=== PATIENT | female | born 1995 | race African-American/Black ===

== ENCOUNTER 2016-12-11 14:37 | Emergency (ER) | payer OTHER ==
[~2016-12-11] VITALS: Ht 162.6 cm; Wt 67.1 kg
--- NOTE | 2016-12-11 14:40 | NUR ---
ROOM BROUGHT PT TO ROOM, TRIAGE DONE
[2016-12-11] MEDS ORDERED: LIDOCAINE 1% VIAL ONE (15:08)
--- NOTE | 2016-12-11 15:11 | ER.PDOC ---
General Chief Complaint: Skin Rash/Abscess Stated Complaint: SKIN ABSCESS Time seen by MD: 15:10 Source: patient Exam Limitations: no limitations History of Present Illness Initial Comments Abscess right labia for 4 days Allergies: Coded Allergies: No Known Allergies (Unverified , 12/11/16) Past Medical History LMP (females 10-50): 1 month Social History Smoking: greater than 1 pack/day Alcohol Use: none Drug Use: none Constitutional: no symptoms reported Respiratory: no symptoms reported Cardiovascular: no symptoms reported Gastrointestinal: no symptoms reported Skin: see HPI All Other Systems: Reviewed and Negative Physical Exam General Appearance: alert, no distress Skin: abscess, pointing Location: other (right labia majora) With: tenderness, swelling, inflammation EENT: eyes nml inspection, lips/gums nml, pharynx nml Neck: trachea midline, no swelling Respiratory: no resp. distress, breath sounds nml CVS: reg. rate & rhythm, heart sounds nml Abdomen: non-tender, no organomegaly NEURO/PSYCH: oriented x 3, CN's nml as tested, motor nml, sensation nml, mood/ affect nml Incision and Drainage Incision and Drainage : Site: Right labia Blade Size: 11 I & D Procedure: betadine prep, gauze wick placed, irrigated cavity w/saline , culture/gram stain Departure Time of Disposition: 15:30 Disposition: 01 HOME, SELF-CARE Impression: Primary Impression: Abscess Condition: Stable Referrals: SUGAR MAXWELL PA-C (PCP) PRIMARY CARE PROVIDER Additional Instructions: F/U with your PCP or return to ED tomorrow for dressing change. EUSEBIO SANTA MD Dec 11, 2016 15:11
[2016-12-11] MEDS ORDERED: NORCO 5 MG PO ONE (15:28)
[2016-12-11] MEDS ORDERED: NORCO 5 MG PO STA (15:29)
[2016-12-11 15:43] VITALS: BP 130/71
== END 2016-12-11 15:40 | disposition home or self-care (01) ==
LOC: ER 14:37
DX: N76.4 Abscess of vulva (principal); F17.210 Nicotine dependence, cigarettes, uncomplicated
CPT/HCPCS: 56405; 87070; 87077; 87186; 99284; J2001

== ENCOUNTER 2018-10-08 12:53 | Emergency (ER) | payer MEDICAID ==
[~2018-10-08] VITALS: Ht 157.5 cm; Wt 68.0 kg
[2018-10-08 13:15] VITALS: BP 135/40
[2018-10-08] MEDS ORDERED: WATER ONE (13:24)
[2018-10-08] MEDS ORDERED: LIDOCAINE 1% VIAL ONE (13:25)
--- NOTE | 2018-10-08 14:06 | ER.PDOC ---
General Chief Complaint: Skin Rash/Abscess Stated Complaint: ABCESS Time seen by MD: 13:58 Source: patient Exam Limitations: no limitations History of Present Illness Initial Comments Pt c/o bump on groin that has been draining for 1 day, started swelling about 3 days ago. Has gotten smaller and is hurting less since it began draining. Is taking Clindamycin that she had left over from another abscess a year ago. Severity: moderate Context: Has had similar symptoms, had abscess with i&D Quality: painful Allergies: Coded Allergies: No Known Allergies (Unverified , 12/11/16) Past Medical History Medical History: other Surgical History: other Social History Smoking: non-smoker Alcohol Use: none Drug Use: none Constitutional: no symptoms reported EENTM: no symptoms reported Respiratory: no symptoms reported Cardiovascular: no symptoms reported Gastrointestinal: no symptoms reported Musculoskeletal: no symptoms reported Skin: see HPI Endocrine: no symptoms reported All Other Systems: Reviewed and Negative Physical Exam General Appearance: alert Skin: abscess (R groin lateral to labia, draining, approx 1.5cm diameter of induration, minimal erythema) Location: other (vagina, labia) With: warmth, tenderness, swelling, induration 1 - small, draining abscess Extremities: non-tender EENT: eyes nml inspection Neck: trachea midline Respiratory: no resp. distress CVS: reg. rate & rhythm NEURO/PSYCH: oriented x 3 Results/Orders Results/Orders Orders - KATHRINE MICHAEL DO Water For Irrigation,Sterile (Water) (10/08/18 13:24) Lidocaine Hcl (Lidocaine 1% Vial) (10/08/18 13:25) Vital Signs Date Time Temp Pulse Resp B/P (MAP) Pulse Ox O2 Delivery O2 Flow Rate FiO2 10/08/18 13:15 98.6 88 18 135/40 (71) 98 Room Air 98.6 10/08/18 13:10 98.6 84 18 98 Room Air 98.6 10/08/18 13:10 98.6 88 18 98.6 Departure Time of Disposition: 14:14 Disposition: 01 HOME, SELF-CARE Impression: Primary Impression: Abscess Condition: Stable Referrals: SUGAR MAXWELL PA-C (PCP) PRIMARY CARE PROVIDER Duration or Time Spent with Pa: KATHRINE DUBOSE DO October 08, 2018 14:06
[2018-10-08 14:14] VITALS: BP 135/40
== END 2018-10-08 14:20 | disposition home or self-care (01) ==
LOC: ER 12:53
DX: N76.4 Abscess of vulva (principal)
CPT/HCPCS: 99283; J2001

== ENCOUNTER 2023-10-13 08:36 | Emergency (ER) | payer OTHER ==
[~2023-10-13] VITALS: Ht 162.6 cm; Wt 70.3 kg
[2023-10-13 08:36] VITALS: BP 139/104; PULSE 98; RESP 18; TEMP 99.3; O2SAT 98
[2023-10-13] MEDS ORDERED: NS 100ML 100 ML IV ONE (08:52)
[2023-10-13] MEDS ORDERED: ROCEPHIN ONE (08:52)
[2023-10-13] MEDS: ROCEPHIN 2,000 MG in NS 100ML 100 ML IV STA (08:59)
[2023-10-13 09:00] LABS: BASOPHIL % 0.2 % (0.0-0.2); EOSINOPHIL % 0.1 % (0.0-5.0); HEMATOCRIT(ML) 35.8 % (36.0-46.0); HEMOGLOBIN 11.5 g/dL (12.0-15.0); LYMPHOCYTES # 0.99 10^3/uL1 (1.0-4.8); LYMPHOCYTES % 5.2 % (24.0-44.0); MEAN CORP HGB 28.1 pg (26-34); MEAN CORP HGB CONCENTRATION 32.1 g/dL (33-36.5); MEAN CORP VOLUME 87.5 fL (78-100); MONOCYTES # 1.5 10^3/uL (0.3-0.8); MONOCYTES % 7.9 % (5.0-12.0); NEUTROPHIL # 16.4 10^3/uL (1.8-7.7); PLATELET COUNT 220 10^3/uL (150-400); RED BLOOD CELL 4.09 10^6/uL (4.00-5.20); RED CELL DISTRIBUTION WIDTH 14.8 % (11.5-14.5)
[2023-10-13 09:03] LABS: +ADD MANUAL DIFF(NO CHRG) NO
[2023-10-13 09:15] LABS: ALBUMIN(ML) 2.9 g/dL (3.4-5.0); ALBUMIN/GLOBULIN RATIO 0.783; ANION GAP 13.1; BUN/CREATININE RATIO 3.75 (10.0-20.0); CALCIUM 8.8 mg/dL (8.4-10.5); CARBON DIOXIDE 23.1 mmol/L (20.0-32); CREATININE SERUM 0.8 mg/dL (0.59-1.40); EST GFR, NON-AA 84.2 (>/=60); POTASSIUM 3.2 mmol/L (3.6-5.2)
[2023-10-13] MEDS ORDERED: DECADRON ONE (09:22)
[2023-10-13] MEDS ORDERED: CEPH500C PO (09:23)
[2023-10-13] MEDS ORDERED: HYDR12.58 PO (09:23)
[2023-10-13] MEDS: DECADRON IV SCH (09:24)
[2023-10-13] MEDS ORDERED: ZOFRAN ONE (09:28)
[2023-10-13] MEDS ORDERED: KLOR-CON 10 PO ONE (09:28)
[2023-10-13 09:34] VITALS: BP 140/78; PULSE 94; RESP 18; O2SAT 99
[2023-10-13] MEDS: ZOFRAN IV PRN (09:34)
[2023-10-13] MEDS: KLOR-CON 10 PO SCH (09:35)
== END 2023-10-13 09:34 | disposition home or self-care (01) ==
LOC: EDBD 08:36 → ER 08:36
DX: J03.00 Acute streptococcal tonsillitis, unspecified (principal); I10 Essential (primary) hypertension
CPT/HCPCS: 99284; 96365; 96375; 80053; 85025; 36415; 87880; J1100; J3490; J0696 ×2; J2405

== ENCOUNTER 2024-03-06 09:34 | Emergency (ER) | payer OTHER ==
[~2024-03-06] VITALS: Ht 162.6 cm; Wt 70.8 kg
[~2024-03-06 09:34] MED LIST: CEPH500C PO; HYDR12.58 PO
[2024-03-06 09:46] VITALS: BP 160/111; PULSE 85; RESP 18; TEMP 98.7; O2SAT 99
[2024-03-06 10:31] LABS: BILIRUBIN,URINE NEGATIVE (NEGATIVE); LEUKOCYTE ESTERASE ,URINE 2+ (NEGATIVE); NITRATE,URINE NEGATIVE (NEGATIVE); PH,URINE 5.5 (4.5-8.0); UROBILINOGEN,URINE 0.2 E.U./dL (0.2)
[2024-03-06 10:34] LABS: APPEARANCE,URINE CLOUDY; UA COLOR YELLOW
[2024-03-06 10:35] VITALS: BP 153/95; PULSE 82; RESP 18; O2SAT 97
[2024-03-06] MEDS ORDERED: ROCEPHIN ONE (10:51)
[2024-03-06] MEDS ORDERED: LIDOCAINE 1% VIAL ONE (10:52)
[2024-03-06] MEDS ORDERED: PHEN-406 PO (10:57)
[2024-03-06] MEDS ORDERED: NITR100C58 PO (10:57)
[2024-03-06] MEDS: ROCEPHIN IM STA (11:00)
== END 2024-03-06 11:05 | disposition home or self-care (01) ==
LOC: ER 09:34
DX: N39.0 Urinary tract infection, site not specified (principal); I10 Essential (primary) hypertension
CPT/HCPCS: 96372; 99283; 87086; 81001; J2001; J0696

== ENCOUNTER 2025-04-09 18:32 | Emergency (ER) | payer OTHER ==
[~2025-04-09] VITALS: Ht 162.6 cm; Wt 72.6 kg
[2025-04-09 18:32] VITALS: BP 149/87; PULSE 106; RESP 16; TEMP 98.2; O2SAT 100
[~2025-04-09 18:32] MED LIST changes: +NITR100C58 PO; +PHEN-406 PO
[2025-04-09] MEDS ORDERED: TORADOL ONE (19:02)
[2025-04-09] MEDS ORDERED: ZOFRAN ODT ONE (19:02)
[2025-04-09] MEDS ORDERED: MORPHINE SULFATE ONE (19:03)
[2025-04-09] MEDS: MORPHINE SULFATE IM STA (19:07)
[2025-04-09] MEDS: ZOFRAN ODT SL STA (19:07)
[2025-04-09] MEDS: TORADOL IM STA (19:07)
[2025-04-09 19:41] VITALS: BP_SYST 186; BP_SYST 204; BP_DIAS 135; BP_DIAS 142; PULSE 88; RESP 16; O2SAT 96
[2025-04-09] MEDS: TRANDATE IV STA (19:47)
[2025-04-09 20:07] VITALS: BP 157/105; PULSE 94; RESP 16; O2SAT 96
[2025-04-09 20:27] LABS: CREATININE SERUM 0.91 mg/dL (0.59-1.40); EST GFR, NON-AA 72.1 (>/=60)
[2025-04-09 20:56] VITALS: BP 170/99; PULSE 86; RESP 16; O2SAT 98
== END 2025-04-09 21:10 | disposition home or self-care (01) ==
LOC: ER 18:32
DX: S89.91XA Unspecified injury of right lower leg, initial encounter (principal); S69.91XA Unspecified injury of right wrist, hand and finger(s), initial encounter; I16.0 Hypertensive urgency; I10 Essential (primary) hypertension; Z79.899 Other long term (current) drug therapy; V49.3XXA Car occupant (driver) (passenger) injured in unspecified nontraffic accident, initial encounter; Y93.89 Activity, other specified; Y92.89 Other specified places as the place of occurrence of the external cause; Y99.8 Other external cause status
CPT/HCPCS: 99284; 96374; 73130; 73562; 36415; 80048; 81025; 96372; J1885; J2270; J3490